=== PATIENT | male | born 1995 | race Caucasian/White ===

== ENCOUNTER 2017-10-18 22:41 | Emergency (ER) | payer BC ==
[~2017-10-18] VITALS: Ht 177.8 cm; Wt 104.3 kg
[~2017-10-18 22:41] MED LIST: ALBU90OI INH; AMOX500 PO; AMOX875 PO; CYCLOBENZAPRINE; OXYACE5T PO; Prednisone20 MG PO; Ultram50 MG PO; Zithromax250 MG PO; Zofran Odt4 MG SL; Zofran4 MG PO
[2017-10-19] MEDS ORDERED: PENVK500 PO (00:04)
[2017-10-19] MEDS ORDERED: IBUP600 PO (00:04)
== END 2017-10-19 00:20 | disposition home or self-care (01) ==
LOC: ER 22:41
DX: K02.9 Dental caries, unspecified (principal); F17.210 Nicotine dependence, cigarettes, uncomplicated
CPT/HCPCS: 99283

== ENCOUNTER 2018-07-01 10:50 | Emergency (ER) | payer OTHER ==
[~2018-07-01] VITALS: Ht 177.8 cm; Wt 99.8 kg
[~2018-07-01 10:50] MED LIST changes: +IBUP600 PO; +PENVK500 PO
[2018-07-01] MEDS ORDERED: NAPR550 PO (11:36)
[2018-07-01] MEDS ORDERED: Veetids 500500 MG PO (11:36)
== END 2018-07-01 11:46 | disposition home or self-care (01) ==
LOC: ER 10:50
DX: K02.9 Dental caries, unspecified (principal); F17.200 Nicotine dependence, unspecified, uncomplicated
CPT/HCPCS: 64400; 96372; 99282-25; J1885